=== PATIENT | female | born 1980 | race African-American/Black ===

== ENCOUNTER 2022-10-25 10:50 | Emergency (ER) | payer MEDICAID ==
[~2022-10-25] VITALS: Ht 170.2 cm; Wt 78.6 kg
[2022-10-25 11:36] VITALS: BP 122/77
[2022-10-25] MEDS ORDERED: IBUPROFEN 800 MG TAB PO ONE (12:15)
[2022-10-25] MEDS ORDERED: IBUP800T27 PO (12:32)
== END 2022-10-25 12:38 | disposition home or self-care (01) ==
LOC: ER 10:50
DX: S80.01XA Contusion of right knee, initial encounter (principal); W22.8XXA Striking against or struck by other objects, initial encounter; Y93.89 Activity, other specified; Y92.89 Other specified places as the place of occurrence of the external cause; Y99.8 Other external cause status
CPT/HCPCS: 73562

== ENCOUNTER 2024-12-29 22:34 | Emergency (ER) | payer MEDICAID, OTHER ==
[~2024-12-29] VITALS: Ht 170.2 cm; Wt 88.6 kg
[~2024-12-29 22:34] MED LIST: IBUP-1456 PO
[2024-12-29 22:53] VITALS: BP 130/78; PULSE 72; RESP 15; TEMP 97.8; O2SAT 100
[2024-12-29] MEDS ORDERED: IBUP-1456 PO (23:03)
[2024-12-29] MEDS ORDERED: CYCL-837 PO (23:03)
--- NOTE | 2024-12-29 23:05 | ED.PDOC ---
Back pain HPI HPI Comments 44-year-old female presents to ER with complaints of back pain x one day. Patient reports that she started experiencing 10/10 right lower lumbar back pain at 6:15 p.m. prior to arrival to ER s/p falling down five steps inside her house and landing on her back onto hardwood [place]uma. Denies head injury/LOC. Denies use of medications for current symptoms and presents to ER ambulatory on arrival, with steady gait, in no distress. Denies numbness/tingling, nausea/vomiting, shortness of breath, chest pain, abdominal/pelvic pain, extremity weakness, changes in urination/BM or any further symptoms/complaints Chief Complaint: Fall Injury Time Seen by MD: 22:39 Primary Care Provider: EVANGELINA JADE Reviewed Notes: Nurses Notes, Medications, Allergies Allergies: Coded Allergies: NO KNOWN ALLERGIES (Unverified , 01/04/14) Home Meds Active Scripts Ibuprofen (Ibuprofen) 800 Mg Tab, 1 TAB PO TID PRN, #30 TAB 0 Refills Prov:BHAVANA QUINTEROS 12/29/24 Cyclobenzaprine Hcl (Cyclobenzaprine Hcl) 5 Mg Tab, 1 TAB PO QHSP PRN, #14 TAB 0 Refills Prov:BHAVANA QUINTEROS 12/29/24 Ibuprofen (Ibuprofen) 800 Mg Tab, 1 TAB PO TID, #30 TAB Prov:TERRI YUSUF 10/25/22 Information Source: Patient Past Medical History PAST MEDICAL HISTORY: Anxiety, Depression Surgical History: Denies all surgeries 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 Family History Family History: Unknown Social History Smoker: Non-Smoker Alcohol: Denies ETOH Use Drugs: Denies Drug Use Lives In: Home Constitutional: denies: chills, diaphoresis, fatigue, fever, malaise, sweats, weakness, others EENTM: denies: blurred vision, double vision, ear bleeding, ear discharge, ear drainage, ear pain, ear ringing, eye pain, eye redness, hearing loss, mouth pain, mouth swelling, nasal discharge, nose bleeding, nose congestion, nose pain, photophobia, tearing, throat pain, throat swelling, voice changes, others Respiratory: denies: cough, hemoptysis, orthopnea, SOB at rest, shortness of breath, SOB with excertion, stridor, wheezing, others Cardiovascular: denies: chest pain, dizzy spells, diaphoresis, Dyspnea on exertion, edema, irregular heart beat, left arm pain, lightheadedness, palpitations, PND, syncope, others Gastrointestinal: denies: abdomen distended, abdominal pain, blood streaked bowels, constipated, diarrhea, dysphagia, difficulty swallowing, hematemesis, melena, nausea, poor appetite, poor fluid intake, rectal bleeding, rectal pain, vomiting, others Genitourinary: denies: abnormal vagina bleeding, burning, dyspareunia, dysuria, flank pain, frequency, hematuria, incontinence, pain, , vagina discharge, urgency, others Neurological: denies: dizziness, fainting, headache, left sided numbness, left sided weakness, numbness, paresthesia, pre-existing deficit, right sided numbness, right sided weakness, seizure, speech problems, tingling, tremors, weakness, others Musculoskeletal: reports: others (As stated in HPI) Integumetry: denies: bruises, change in color, change in hair/nails, dryness, laceration, lesions, lumps, rash, wounds, others Allergic/Immunocompromised: denies: Difficulty Healing, Frequent Infections, Hives, Itching, others Hematologic/Lymphatic: denies: anemia, blood clots, easy bleeding, easy bruising, swollen glands, others Endocrine: denies: excessive hunger, excessive sweating, excessive thirst, excessive urination, flushing, intolerance to cold, intolerance to heat, unexplained weight gain, unexplained weight loss, others Psychiatric: denies: anxiety, bipolar disorder, depression, hopeless, panic disorder, schizophrenia, sleepless, suicidal, others Physical Exam General Appearance: No Apparent Distress, Obese HEENT: PERRL/EOMI Neck: Full Range of Motion, Non-Tender, Normal Respiratory: Chest Non-Tender, Lungs Clear, No Accessory Muscle Use, No Respiratory Distress, Normal Breath Sounds Cardiovascular: No Murmur, No Gallop, Regular Rate/Rhythm Breast Exam: Deferred Gastrointestinal: Non Tender, No Pulsatile Mass, Soft Genitalia: Deferred Pelvic: Deferred Rectal: Deferred Extremities: Normal capillary refill, Normal range of motion Musculoskeletal : Extremity Location: Back (TTP to right lower lumbar paraspinals noted. No skin changes noted. 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 Was a procedure done?: No Sedation Sedation?: No Back Pain Differential Dx Differential Diagnosis: AAA, Fracture, Strain X-Ray, Labs, Meds, VS Vital Signs Date Time Temp Pulse Resp B/P (MAP) Pulse Ox O2 Delivery O2 Flow Rate FiO2 12/29/24 22:53 97.8 72 15 130/78 (95) 100 97.8 Current Medications Medications (Trade) Dose Ordered Sig/Freya Route Start Time Stop Time Status Last Admin Ketorolac Tromethamine (Toradol Injection) 60 mg ONCE ONCE IM 12/29/24 23:00 12/29/24 23:01 DC 12/29/24 23:49 PATIENT: YULIYA THOMAST: [id number]: [id number] : 1980 LOC: ER ROOM / BED: / AGE / SEX: 44 / F ADM STATUS: REG ER SERVICE [id number] ORDERING PHYSICIAN: BHAVANA QUINTEROS PROCEDURE(s): LUMB2 - LUMBAR SPINE 3 VIEW REASON: lumbar back pain ORDER NUMBER(s): [id number], ACCESSION NUMBER(s): [id number] INDICATION: lumbar back pain COMPARISON: None TECHNIQUE: 2 views of the lumbar spine were obtained. FINDINGS: The lumbar vertebral alignment is normal. The intervertebral disc spaces are well-maintained. No significant facet arthropathy is noted. No acute fracture, vertebral compression deformity or aggressive osseous lesions. The paravertebral soft tissues are grossly unremarkable. IMPRESSION: 1. No acute fracture. ATED BY: CHRISTO WELLER MD DICTATED DATE/TIME: 12/30/2422 SIGNED BY: CHRISTO WELLER MD SIGNED DATE/TIME: 12/30/2422 CC: Lumbar spine x-ray reviewed Toradol 60 mg IM ordered Patient had improvement in symptoms and in no distress prior to discharge Advised on rest/no strenuous activity Advised to follow up with PCP in 1-2 days Patient verbalized understanding and agreeable with current plan of care Advised to return to ER immediately if symptoms worsen Images Reviewed?: Images reviewed and evaluated by me Time of 1ST Reevaluation: 23:00 Reevaluation 1ST: N/A Patient Education/Counseling: Diagnosis, Treatment, Prognosis, Need For Follow Up Family Education/Counseling: No Family Present SEPSIS Sepsis Screen Physician Orders Lumbar Spine 3 View (12/29/24 22:54) Vital Signs Date Time Temp Pulse Resp B/P (MAP) Pulse Ox O2 Delivery O2 Flow Rate FiO2 12/29/24 22:53 97.8 72 15 130/78 (95) 100 97.8 Medications Medications Dose Ordered Sig/Freya Route Start Time Stop Time Status Last Admin Dose Admin Ketorolac Tromethamine 60 mg ONCE ONCE IM 12/29/24 23:00 12/29/24 23:01 DC 12/29/24 23:49 Departure 1 Departure Time of Disposition: 00:28 Impression: Primary Impression: Lumbar contusion Qualified Codes: S30.0XXA - Contusion of lower back and pelvis, initial encounter Disposition: HOME / SELF CARE / HOMELESS Condition: Stable e-Prescriptions Ibuprofen (Ibuprofen) 800 Mg Tab 1 TAB PO TID PRN, #30 TAB 0 Refills Prov: BHAVANA QUINTEROS 12/29/24 Cyclobenzaprine Hcl (Cyclobenzaprine Hcl) 5 Mg Tab 1 TAB PO QHSP PRN, #14 TAB 0 Refills Prov: BHAVANA QUINTEROS 12/29/24 Discharged With: Friend Critical Care Note Critical Care Time?: No Stability Stability form required: No Heart Score Heart Score: Heart Score Response (Comments) Value History N/A 0 EKG N/A 0 Age N/A 0 Risk Factors N/A 0 Troponin N/A 0 Total 0 BHAVANA QUINTEROS Dec 29, 2024 23:05
[2024-12-29] MEDS: KETOROLAC TROMETH 60MG/2ML VIAL IM ONE (23:49)
--- NOTE | 2024-12-30 00:26 | DVH ---
INDICATION: lumbar back pain COMPARISON: None TECHNIQUE: 2 views of the lumbar spine were obtained. FINDINGS: The lumbar vertebral alignment is normal. The intervertebral disc spaces are well-maintained. No significant facet arthropathy is noted. No acute fracture, vertebral compression deformity or aggressive osseous lesions. The paravertebral soft tissues are grossly unremarkable. IMPRESSION: 1. No acute fracture.
== END 2024-12-30 02:02 | disposition home or self-care (01) ==
LOC: ER 22:34
DX: S30.0XXA Contusion of lower back and pelvis, initial encounter (principal); W10.9XXA Fall (on) (from) unspecified stairs and steps, initial encounter; Y93.89 Activity, other specified; Y92.89 Other specified places as the place of occurrence of the external cause; Y99.8 Other external cause status
CPT/HCPCS: 72100; 96372; 99283; J1885